=== PATIENT | female | born 1965 | race Caucasian/White ===

== ENCOUNTER 2022-06-19 08:40 | Outpatient (CLI) | payer BC, SELFPAY ==
[2022-06-19 16:17] LABS: Chloride* 95 mmol/L (96-114); Potassium* 4.3 mmol/L (3.6-5.1)
[2022-06-19 16:20] LABS: Creatinine* 0.7 mg/dL (0.5-1.5); Estimated Glomerular Filt Rate 103 ml/min; Sodium* 127 mmol/L (135-149)
[2022-06-19 16:21] LABS: Blood Urea Nitrogen* 15 mg/dL (7-30); Calcium* 7.2 mg/dL (8.4-10.6); Carbon Dioxide* 23 mmol/L (20-32); Glucose* 73 mg/dL (60-115)
== END 2022-06-19 08:41 | disposition home or self-care (01) ==
LOC: LONREF 08:42
PROVIDERS: PCP Family Medicine; Visit Provider Family Medicine
DX: Z13.1 Encounter for screening for diabetes mellitus (principal); Z13.0 Encounter for screening for diseases of the blood and blood-forming organs and certain disorders involving the immune mechanism
CPT/HCPCS: 80048

== ENCOUNTER 2022-08-09 15:24 | Outpatient (CLI) | payer BC, SELFPAY ==
--- NOTE | 2022-08-09 15:20 | CRLHL7_ITS ---
For Patients: As a result of the Cures Act, medical imaging exams and procedure reports are released immediately into your electronic medical record. You may view this report before your referring provider. If you have questions, please contact your health care provider. BILATERAL SCREENING MAMMOGRAM WITH COMPUTER-AIDED DETECTION AND TOMOSYNTHESIS TECHNIQUE: CC and MLO views were obtained. These mammographic images have been obtained using full-field digital technique. These mammographic images were interpreted with the benefit of computer-aided detection. Breast tomosynthesis was used in this interpretation. COMPARISON FILM: 02/10/21, 06/13/20, 06/02/19. FINDINGS: There are scattered areas of fibroglandular density. IMPRESSION: There is no radiographic evidence for malignancy. ASSESSMENT: BI-RADS Category 1: Negative RECOMMENDATION: Routine screening mammogram in 1 year. A lay language report of this examination will be provided to the patient. TYREE KHAN M.D. Diagnostic Radiologist [email or web address] KYLE/tio Transcribed: 08/10/2022, 1:[address]/Dictated by: Tyree Khan MD @ 08/10/2022 8:18:00 AM (Electronically Signed)
== END 2022-08-09 15:25 | disposition home or self-care (01) ==
LOC: MAMMO 15:25
PROVIDERS: PCP Family Medicine; Visit Provider Family Medicine
DX: Z12.31 Encounter for screening mammogram for malignant neoplasm of breast (principal)
CPT/HCPCS: 77063; 77067

== ENCOUNTER 2023-06-19 08:15 | Outpatient (RCR) | payer BC, SELFPAY | END 2023-09-25 09:17 | disposition home or self-care (01) | PROVIDERS: PCP Family Medicine; Visit Provider Orthopaedic Surgery | DX: M75.51 Bursitis of right shoulder (principal); M25.511 Pain in right shoulder; M54.2 Cervicalgia; Z51.89 Encounter for other specified aftercare | CPT/HCPCS: 97110; 97140; 97161 ==

== ENCOUNTER 2023-08-12 14:55 | Outpatient (CLI) | payer BC, SELFPAY ==
--- NOTE | 2023-08-12 15:00 | MM_ITS ---
BILATERAL 3D SCREENING MAMMOGRAPHY WITH TOMOSYNTHESIS AND COMPUTER ASSISTED DETECTION INDICATION: SCREENING COMPARISON: 08/09/2022, 02/10/2021 FINDINGS: THE BREAST PARENCHYMA IS ALMOST ENTIRELY FAT. NO SUSPICIOUS MASSES OR ARCHITECTURAL DISTORTION. IMPRESSION: NO EVIDENCE OF MALIGNANCY. BI-RADS CATEGORY 1. NEGATIVE. RECOMMENDATIONS: ROUTINE BILATERAL SCREENING MAMMOGRAPHY.
--- OUTSIDE RECORDS SUMMARY | 2023-08-12 15:02 | XMS_ITS | Continuity of Care Document ---
Author Name Unknown Organization [facility] Address [address] [place] [address]. 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 Bursitis of right shoulder M75.51 Admitting Encounter for other specified aftercare Z51.89 Admit ting Bursitis of right shoulder M75.51 Admitting Encounter for other specified aftercare Z51.89 Admit ting Bursitis of right shoulder M75.51 Admitting Encounter for other specified aftercare Z51.89 Admit ting Bursitis of right shoulder M75.51 Admitting Encounter for other specified aftercare Z51.89 Admit ting Other specified anxiety disorders F41.8 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
== END 2023-08-12 14:56 | disposition home or self-care (01) ==
PROVIDERS: PCP Family Medicine; Visit Provider Family Medicine
DX: Z12.31 Encounter for screening mammogram for malignant neoplasm of breast (principal)
CPT/HCPCS: 77063; 77067

== ENCOUNTER 2024-07-28 10:10 | Outpatient (CLI) | payer BC, SELFPAY | END 2024-07-28 10:11 | disposition home or self-care (01) | PROVIDERS: PCP Family Medicine; Visit Provider Family Medicine | DX: R53.83 Other fatigue (principal); Z13.228 Encounter for screening for other metabolic disorders; Z13.220 Encounter for screening for lipoid disorders; Z13.29 Encounter for screening for other suspected endocrine disorder | CPT/HCPCS: 80048; 80061; 84439 ==

== ENCOUNTER 2024-09-23 15:14 | Outpatient (CLI) | payer BC, SELFPAY ==
--- NOTE | 2024-09-23 15:20 | CRLHL7_ITS ---
For Patients: As a result of the Century Cures Act, medical imaging exams and procedure reports are released immediately into your electronic medical record. You may view this report before your referring provider. If you have questions, please contact your health care provider. BILATERAL SCREENING MAMMOGRAM WITH COMPUTER-AIDED DETECTION AND TOMOSYNTHESIS TECHNIQUE: CC and MLO views were obtained. These mammographic images have been obtained using full-field digital technique. These mammographic images were interpreted with the benefit of computer-aided detection. Breast Tomosynthesis was used in this interpretation. COMPARISON FILM: 08/12/23, 08/09/22, 02/10/21. FINDINGS: The breasts are almost entirely fatty. IMPRESSION: There is no radiographic evidence for malignancy. ASSESSMENT: BI-RADS Category 1: Negative RECOMMENDATION: Routine screening mammogram in 1 year. A lay language report of this examination will be provided to the patient. Tyree Ulloa M.D. Diagnostic Radiologist [email or web address] SP/Dictated by: Tyree Ulloa MD @ 09/29/2024 12:59:00 PM (Electronically Signed)
== END 2024-09-23 15:15 | disposition home or self-care (01) ==
LOC: MAMMO 15:15
PROVIDERS: PCP Family Medicine; Visit Provider Family Medicine
DX: Z12.31 Encounter for screening mammogram for malignant neoplasm of breast (principal)
CPT/HCPCS: 77063; 77067

== ENCOUNTER 2025-05-25 08:49 | Outpatient (CLI) | payer BC, SELFPAY | END 2025-05-25 08:50 | disposition home or self-care (01) | LOC: LKVREF 08:52 | PROVIDERS: PCP Family Medicine; Visit Provider Family Medicine | DX: R74.8 Abnormal levels of other serum enzymes (principal) | CPT/HCPCS: 83540; 83550 ==

== ENCOUNTER 2025-06-04 08:56 | Outpatient (CLI) | payer BC, SELFPAY ==
--- NOTE | 2025-06-04 09:15 | CRLHL7_ITS ---
For Patients: As a result of the Century Cures Act, medical imaging exams and procedure reports are released immediately into your electronic medical record. You may view this report before your referring provider. If you have questions, please contact your health care provider. INDICATION: ABNORMAL LEVELS OF OTHER SERUM ENZYMES COMPARISON: none TECHNIQUE: Real time mcdonald scale imaging and color Doppler analysis was performed of the right upper quadrant. FINDINGS: The patient`s liver is of normal size and has increased echogenicity. There is a normal appearance of the hepatic IVC and proximal abdominal aorta. There is no evidence of ascites. The gallbladder is of normal size and there is no evidence of intraluminal stones or sludge. The gallbladder wall measures 1.5 mm in thickness. The common bile duct is of normal size and measures 7.1 mm in diameter at the level of the saad hepatis. The pancreas appears normal. There is no evidence of a stone or hydronephrosis within the right kidney. The right kidney measures 10.1 cm in length. IMPRESSION: Diffuse hepatic steatosis. Remainder unremarkable. Dictated by Tyree Ulloa MD @ 06/04/2025 11:19:50 AM (Electronically Signed)
== END 2025-06-04 08:57 | disposition home or self-care (01) ==
LOC: US 08:56
PROVIDERS: PCP Family Medicine; Visit Provider Family Medicine
DX: R74.8 Abnormal levels of other serum enzymes (principal); K76.9 Liver disease, unspecified
CPT/HCPCS: 76705